=== PATIENT | female | born 1930 | race Caucasian/White ===

== ENCOUNTER 2021-02-28 05:46 | Inpatient (IN) | payer MEDICARE, BC ==
[~2021-02-28] VITALS: Ht 154.9 cm; Wt 91.4 kg
[~2021-02-28 05:46] MED LIST: CALCIUM 600 PLU1 TAB PO; CENTRUM SPECIA1 EAC1 PO; COLACE 100100 MG/CAP PO; DULCOLAX S10 MG/SUPP RC; ELIQUIS 5MG PO; GLUCOSAMINE & C1 CA1 PO; K-DUR 10 MEQ T10 MEQ PO; LASIX 20MG TABL20 MG PO; LIQUIFILM TEARS15 ML OP; MIRALAX PA17 GM/Dose PO; NORCO 325 MG-51 TAB PO; NYSTATIN POWDER30 GM TOP; OCUVITE1 TA1 PO; PROAIR HFA0.09 MG/AC IH; Patient's Own Medica IH; ROBAXIN 75750 MG/TAB PO; SENOKOT S 50 MG1 TAB PO; TENORMIN 2525 MG/TAB PO; TYLENOL 325MG325 MG PO
[2021-02-28 08:14] VITALS: BP 135/83; PULSE 91; TEMP 98.5
[2021-02-28] MEDS ORDERED: GLUCOSAMINE/CHO1 CA4 PO (09:22)
[2021-02-28] MEDS ORDERED: COZAAR100 MG PO (09:23)
[2021-02-28] MEDS ORDERED: NORCO 325 MG-51 TAB PO ×2 (09:23→09:41)
[2021-02-28] MEDS ORDERED: TYLENOL 500MG500 MG PO ×2 (09:25→09:46)
[2021-02-28] MEDS ORDERED: RT ADVAIR 128 DISKUS IH (09:26)
[2021-02-28] MEDS ORDERED: CALCIUM WITH D31 CTB PO (09:27)
[2021-02-28] MEDS ORDERED: LASIX 40MG TABL40 MG PO (09:28)
[2021-02-28] MEDS ORDERED: ROBAXIN 75750 MG/TAB PO ×2 (09:29→09:43)
[2021-02-28] MEDS ORDERED: PRESERVISION1 SGL PO (09:30)
[2021-02-28] MEDS ORDERED: REGULOID0.4 GM PO (09:38)
[2021-02-28] MEDS ORDERED: DULCOLAX TAB5 MG PO (09:39)
[2021-02-28] MEDS ORDERED: COLACE 100100 MG/CAP PO (09:40)
[2021-02-28] MEDS ORDERED: IMODIUM 2MG CAPS2 MG PO (09:42)
[2021-02-28] MEDS ORDERED: NATURAL SENNA8.6 MG PO (09:44)
[2021-02-28] MEDS ORDERED: TUMS500 MG PO (09:45)
[2021-02-28] MEDS ORDERED: 00186-0372-20 IH (09:47)
[2021-02-28 10:48] LABS: TROPONIN-I 0.616 ng/mL (0.000-0.035)
[2021-02-28 11:01] LABS: THYROID STIMULATING HORMONE 3.12 uIU/mL (0.465-4.680)
[2021-02-28 12:00] VITALS: BP 108/44; PULSE 71; TEMP 98.4
--- NOTE | 2021-02-28 12:40 | NUR ---
Plan is to return to [facility] in [place]. SW met with patient an son in room. Son Wale Beauchamp . Patient gave permission to speak with son and she will not remember. Patient reports PCP is Nani Marroquin and the use of a Wheelchair for the last 5 years. Patient reports that she is numb in the legs and can not stand. Patient reports that she does not have addtional cocerns at this time. So reports that he would like to talk with nurse or Doct about the next step. Max facilitated chat for care. Educated on suport availble.
[2021-02-28 15:53] VITALS: BP 104/53; PULSE 70; TEMP 98.6
--- NOTE | 2021-02-28 18:29 | NUR ---
Pt rested most of the afternoon after arrival to the floor. She is A/O x4. Her breathing is even and unlabored on 2L O2 via NC. Pt does endorse some SOB. No chest pain. Reports chronic pain to back, leg and shoulders. Did have a small bout of emesis today, little appetite. SCD's in place. Wagner DD with cloudy urine. Will continue to monitor.
--- NOTE | 2021-02-28 19:30 | NUR ---
PT REQUESTED TO END TRTEATMENT EARLY BECAUSE IT WAS "TOO MUCH". NI EXPLAINED TO PATIENT THIS WAS A SUBSTITUTION FOR HOME MED, SHE STILL WANTERD TO FINISH EARLY.
[2021-02-28 19:48] VITALS: BP 103/52; PULSE 66; TEMP 98
--- NOTE | 2021-02-28 23:03 | NUR ---
Patient assessed around 2049. Alert and oriented, and able to make needs known. Denies having pain and discomfort at this time. Peripheral INT to left AC. Site without redness, warmth, swelling, and pain. Denies having SOB and dyspnea. On oxygen at 2 L/min via NC. LS CTA in upper lobes, diminished in lower. Respirations even and unlabored. HRR. Telemetry in place. Capillary refill less than 3 seconds. Non-tenting skin turgor. BSAx4. Abdomen soft and non-tender. Complained of nausea, and given PRN Zofran. 1+ edema BLE. Voices no questions, needs, or concerns at this time. Resting in bed with call light within reach.
[2021-03-01] VITALS (15 sets, daily range): BP systolic 88–133; BP diastolic 39–58; PULSE 66–74; TEMP 97.2–98.5
--- NOTE | 2021-03-01 00:34 | NUR ---
Patient complained of back pain. Given PRN [place] for pain. Resistant to repositioning, but did allow staff to reposition at this time.
--- NOTE | 2021-03-01 05:44 | NUR ---
Patient has been resting in bed with call light within reach. Continues on oxygen at 1 L/min via NC. Voices no questions, needs, or concerns at this time.
[2021-03-01 06:48] LABS: MEAN CELL VOLUME 99 fl (80.0-100.0); MEAN CORPUSCULAR HGB CONC 29 g/dl (33.0-37.0); PLATELET COUNT 244 K/mm3 (130-400); RED BLOOD COUNT 3.06 M/mm3 (4.10-5.30); REDCELL DISTRIBUTION WIDTH-CV 14.2 % (11.5-14.5)
[2021-03-01 06:49] LABS: HEMATOCRIT 30.2 % (37.0-47.0); HEMOGLOBIN 8.8 g/dl (12.5-16.0); MEAN CORPUSCULAR HEMOGLOBIN 29 pg (27.0-31.0)
[2021-03-01 07:01] LABS: CHOLESTEROL RISK RATIO 3.9
[2021-03-01 07:24] LABS: BAND 29 % (0-10); LYMPHOCYTE 4 % (20.0-51.0); NEUTROPHILS 62 % (42.0-75.2); PLATELET ESTIMATE NORMAL (NORMAL)
--- NOTE | 2021-03-01 07:30 | NUR ---
Pt assessment complete. Pt is laying in bed upon entry, she is A/O x4. Her breathing is even and unlabored on 2L O2 via NC. Pt denies any SOB. No pain at this time. Is having some nausea, small amount of emesis. PRN Zofran administered. SCD's in place. POC discussed with patient who verbalizes understanding. Call light within reach.
[2021-03-01 08:43] LABS: ALBUMIN 3.6 gm/dL (3.5-5.0); CALCIUM 9.1 mg/dL (8.4-10.2); CREATININE, serum 3.18 (0.52-1.25); MAGNESIUM 2.1 mg/dL (1.6-2.3); PHOSPHOROUS 7.3 mg/dL (2.5-4.5); POTASSIUM 5.7 mmol/L (3.4-5.0)
--- NOTE | 2021-03-01 10:28 | NUR ---
Pt left for rosalba at this time.
[2021-03-01 13:23] LABS: PARTIAL THROMBOPLASTIN TIME 35.6 SECONDS (26.0-37.0)
[2021-03-01 13:47] LABS: MUCOUS Present /lpf; PH 5 (5-8); SQUAMOUS EPITHELIAL 0-2 /hpf; URINE APPEARANCE Cloudy; URINE BACTERIA Rare /hpf; URINE BILIRUBIN Negative (NEGATIVE); URINE BLOOD Negative (NEGATIVE); URINE COLOR Amber; URINE GLUCOSE Negative (NEGATIVE); URINE KETONE Trace (NEGATIVE); URINE LEUKOCYTE ESTERASE 3+ (NEGATIVE); URINE NITRATE Negative (NEGATIVE); URINE PROTEIN(semi-quant) 2+ (NEGATIVE); URINE RBC None Seen /hpf; URINE UROBILINOGEN Negative (NEGATIVE)
--- NOTE | 2021-03-01 14:30 | NUR ---
SHANNA attempted to contact Radha at [facility]. SHANNA left her a voicemail and faxed her updates.
[2021-03-01 14:54] LABS: COLLECTION METHOD CATHETER
--- NOTE | 2021-03-01 19:21 | NUR ---
Pt refused to let staff reposition her, discussed possibility of bed sores with patient. She verbalizes understanding and continues to refuse. She had little appetite and small amount of emesis. Very little UOP, workman free from loops or kinks. Bladder scan did not reveal any urine retention. POC discussed with patient who verbalizes understanding. Call light within reach.
--- NOTE | 2021-03-01 21:30 | NUR ---
Call placed to Chen Altamirano RE: critical value Hep XA- phone orders read back- Hold Heparin gtt, d/c heparin bolus, redraw Hep XA at 0200 on 03/02/21. UPdated patient on plan of care.
[2021-03-02] VITALS (14 sets, daily range): BP systolic 100–125; BP diastolic 47–62; PULSE 62–71; TEMP 97.7–98.2
--- NOTE | 2021-03-02 00:45 | NUR ---
Called to room by patient, c/o R sided chest pain, VS stable, call placed to Chen MAXWELL- see new orders. Chen at bedside with patient, EKG done.
[2021-03-02 02:46] LABS: MEAN CELL VOLUME 99 fl (80.0-100.0); MEAN CORPUSCULAR HGB CONC 30 g/dl (33.0-37.0); MEAN PLATELET VOLUME 10.6 fl (7.4-10.4); PLATELET COUNT 252 K/mm3 (130-400); RED BLOOD COUNT 2.96 M/mm3 (4.10-5.30); REDCELL DISTRIBUTION WIDTH-CV 14.3 % (11.5-14.5)
[2021-03-02 02:51] LABS: HEMATOCRIT 29.2 % (37.0-47.0); HEMOGLOBIN 8.6 g/dl (12.5-16.0); MEAN CORPUSCULAR HEMOGLOBIN 29 pg (27.0-31.0)
[2021-03-02 03:02] LABS: CALCIUM 8.8 mg/dL (8.4-10.2); CREATININE, serum 4.04 (0.52-1.25); POTASSIUM 4.8 mmol/L (3.4-5.0)
[2021-03-02 03:26] LABS: ANISOCYTOSIS 1+; HYPOCHROMIA 3+; LYMPHOCYTE 3 % (20.0-51.0); NEUTROPHILS 95 % (42.0-75.2); PLATELET ESTIMATE NORMAL (NORMAL)
[2021-03-02 03:27] LABS: OVALOCYTES 1+
--- NOTE | 2021-03-02 03:30 | NUR ---
Updated Chen Altamirano on critical Hep Xa- NON: do not start heparin gtt at this time.
[2021-03-02 03:46] LABS: TROPONIN-I 0.465 ng/mL (0.000-0.035)
--- NOTE | 2021-03-02 04:50 | NUR ---
Call placed to Chen Altamirano to report 150ml output for shift, urine noted in workman tube. Patient denies pain.
[2021-03-02 11:13] LABS: ARTERIAL BLD GAS O2 SATURATION 97.5 % (92-100); ARTERIAL BLD GAS TCO2 CT 20.1; ARTERIAL BLOOD GAS BASE EXCESS -8.1 (-2-2); ARTERIAL BLOOD GAS HCO3 18.7 meq/L (22-26); ARTERIAL BLOOD GAS PO2 102.2 mmHg (80-100); ARTERIAL BLOOD GAS pH 7.25 (7.35-7.45)
--- NOTE | 2021-03-02 14:29 | NUR ---
SHANNA attempted to contact Radha at [facility]. SHANNA left her a voicemail. SHANNA then contacted the patient's RN, Quin, at [facility]. Quin confirms that the patient is a long-term resident with them. SHANNA faxed updates to [facility]. *Discharge plan: [facility]*
--- NOTE | 2021-03-02 17:55 | NUR ---
1000 PT STILL NOT HAVING MUCH URINE OUTPUT. MD MADE AWARE. PT WAS BLADDER SCAN AND HAVE ZERO URINE IN BLADDER. PT THEN HAD A BM THE HAD BLOOD CLOTS. MADE AWARE. OB STOOL SENT. MD INSTRUCT TO INT PT AT THIS TIME, BUSINESS DEVELOPMENT CONSULTANT WILL BE CONSULTED.
[2021-03-02 18:54] LABS: HEMATOCRIT 28.4 % (37.0-47.0); HEMOGLOBIN 8.3 g/dl (12.5-16.0)
[2021-03-03] VITALS (11 sets, daily range): BP systolic 94–145; BP diastolic 42–73; PULSE 68–94; TEMP 97–98.3
--- NOTE | 2021-03-03 04:12 | NUR ---
Large amount of blood stool- Call placed to Chen MAXWELL- came to bedside and examined patient, VS stable, see new orders.
[2021-03-03 04:40] LABS: MEAN CELL VOLUME 98 fl (80.0-100.0); MEAN CORPUSCULAR HGB CONC 30 g/dl (33.0-37.0); PLATELET COUNT 247 K/mm3 (130-400); REDCELL DISTRIBUTION WIDTH-CV 14.3 % (11.5-14.5)
[2021-03-03 04:43] LABS: HEMATOCRIT 26.4 % (37.0-47.0); HEMOGLOBIN 7.8 g/dl (12.5-16.0); MEAN CORPUSCULAR HEMOGLOBIN 29 pg (27.0-31.0)
[2021-03-03 04:47] LABS: INR 1.7 (0.8-3.0); PROTHROMBIN TIME 19.2 SECONDS (9.7-12.8)
[2021-03-03 04:49] LABS: ALBUMIN 3.7 gm/dL (3.5-5.0); CALCIUM 8.8 mg/dL (8.4-10.2); CREATININE, serum 4.88 (0.52-1.25); PHOSPHOROUS 8.4 mg/dL (2.5-4.5); POTASSIUM 4.6 mmol/L (3.4-5.0)
[2021-03-03 04:57] LABS: BAND 2 % (0-10); BURR CELLS 2+; HYPOCHROMIA 3+; LYMPHOCYTE 6 % (20.0-51.0); NEUTROPHILS 89 % (42.0-75.2); PLATELET ESTIMATE NORMAL (NORMAL)
[2021-03-03 04:58] LABS: OVALOCYTES 1+; SCHISTOCYTES 1+
--- NOTE | 2021-03-03 11:04 | NUR ---
0700 PT RECEIVED AT BEDSIDE, RECEIVING 1 UNIT OF PRBC. NO S/S OF DISTRESS NOTED. PT IS STILL TAKING BOWEL PREP. BM STILL NOT CLEAR BUT LIQUID. 0900 BLOOD TRANSFUSION COMPLETED, PT TOLERATED WELL. PT INSTRUCTED TO STOP BOWEL PREP PRE ANESTHESIA FOR EGD AND COLONOSCOPY TODAY AT 11AM. 0930 RADIOLOGIST AT THE BEDSIDE, WILL REVISIT PT TO EXPLAIN IVC PLACEMENT TODAY TODAY. MAY BE ABLE TO HAVE THE PROCEDURE DONE TODAY AFTER EGD AND COLONOSCOPY. 1000 CONSENT FOR EGD AND COLONOSCOPY OBTAIN. 1015 REPORT GIVEN TO ENDO STAFF 1022 PT TRANSPORTED TO ENDOSCOPY VIA BED. NO S/S OF DISTRESS NOTED
--- NOTE | 2021-03-03 13:52 | NUR ---
The patient is to have an EGD and colonoscopy today. SHANNA notified and faxed updates to Radha at [facility].
--- NOTE | 2021-03-03 19:29 | NUR ---
Marie awake alert, generalized weakness noted, oriented x4, workman w/low output- MD aware-plan made, telemetry in use, denies needs at this time, call julissa w/i reach, frequent checks, refuses turning schedule, KATHERIN heels elevated off of bed, will continue to monitor.
[2021-03-04] VITALS (7 sets, daily range): BP systolic 83–150; BP diastolic 48–75; PULSE 67–84; TEMP 97.8–98.6
[2021-03-04 07:10] LABS: MEAN CELL VOLUME 98 fl (80.0-100.0); MEAN CORPUSCULAR HGB CONC 31 g/dl (33.0-37.0); MEAN PLATELET VOLUME 10.2 fl (7.4-10.4); PLATELET COUNT 236 K/mm3 (130-400); RED BLOOD COUNT 3.17 M/mm3 (4.10-5.30); REDCELL DISTRIBUTION WIDTH-CV 14.2 % (11.5-14.5)
[2021-03-04 07:11] LABS: HEMOGLOBIN 9.5 g/dl (12.5-16.0); MEAN CORPUSCULAR HEMOGLOBIN 30 pg (27.0-31.0)
[2021-03-04 07:14] LABS: CALCIUM 8.7 mg/dL (8.4-10.2); CREATININE, serum 5.43 (0.52-1.25); POTASSIUM 4.5 mmol/L (3.4-5.0)
[2021-03-04 07:43] LABS: HYPOCHROMIA 3+; LYMPHOCYTE 9 % (20.0-51.0); NEUTROPHILS 90 % (42.0-75.2); PLATELET ESTIMATE NORMAL (NORMAL)
--- NOTE | 2021-03-04 08:17 | NUR ---
SEE MERGE FOR ALL MEDICATION ADMINISTRATION TIMES, INTRA AND POST SEDATION ASSESSMENTS
--- NOTE | 2021-03-04 11:05 | NUR ---
Pt left floor this morning for dialysis catheter and IVC filter placement, returned to floor and shortly after was taken to dialysis. Shift assessments completed, left Pt in dialysis.
[2021-03-04 11:12] LABS: IRON,SERUM 83 ug/dL (35-150)
[2021-03-04 11:21] LABS: TOTAL IRON BINDING CAPACITY 261 ug/dL (265-497)
--- NOTE | 2021-03-04 12:08 | NUR ---
PATIENT TOLERATED HER 1ST HD TX WITH 700 ML FLUID REMOVAL. NEXT PLANNED HD TX TOMORROW Sunday03/05/21 @ 0800.
--- NOTE | 2021-03-04 15:28 | NUR ---
SHANNA contacted the patient's son, Wale, to follow up. Wale confirms that the plan is for the patient to return back to [place] upon discharge. He was interested in an update from the patient's RN. SHANNA transferred the call to the medical unit and notified the senior shipping clerk. SHANNA faxed updates to Radha at [facility].
[2021-03-04 22:00] LABS: HEPATITIS B SURFACE ANTIBODY <2.0 (()); HEPATITIS B SURFACE ANTIGEN Negative (Negative); HEPATITIS C VIRUS ANTIBODY Negative (Negative)
--- NOTE | 2021-03-05 01:46 | NUR ---
Franchesca complains of being weak last night. She complains of generalized pain. I gave her Tylenol 325mg. She complains being cold too and having SOB. I checked her O2 sat she was 94% at 2L. I gave her extra warm blanket and adjusted the temp inside the room. I told her that her saturation is good and she said that she will try to get some sleep. Tele called that she runs in 150's sinus tach for 15 sec but it went back right away to 76. She called often for ice chips and for little things. Continue to monitor.
[2021-03-05 03:51] VITALS: BP 140/64; PULSE 80; TEMP 98.4
--- NOTE | 2021-03-05 04:20 | NUR ---
Franchesca had her Freedom this morning she compalins of neck pain 8out of 10. She said that she is uncomfortable so I repositioned her and pulled up in bed. She still feels uncomfortable and wanted just to be in her back instead.
[2021-03-05 07:06] LABS: MEAN CELL VOLUME 98 fl (80.0-100.0); MEAN CORPUSCULAR HGB CONC 30 g/dl (33.0-37.0); MEAN PLATELET VOLUME 10.2 fl (7.4-10.4); PLATELET COUNT 213 K/mm3 (130-400); RED BLOOD COUNT 3.09 M/mm3 (4.10-5.30); REDCELL DISTRIBUTION WIDTH-CV 14.2 % (11.5-14.5)
[2021-03-05 07:12] LABS: HEMATOCRIT 30.3 % (37.0-47.0); HEMOGLOBIN 9.1 g/dl (12.5-16.0); MEAN CORPUSCULAR HEMOGLOBIN 29 pg (27.0-31.0)
[2021-03-05 07:18] LABS: CALCIUM 8.7 mg/dL (8.4-10.2); CREATININE, serum 4.87 (0.52-1.25); POTASSIUM 4.2 mmol/L (3.4-5.0)
[2021-03-05 07:35] VITALS: BP 117/53; PULSE 76; TEMP 97.6
--- NOTE | 2021-03-05 08:40 | NUR ---
Pt off unit for hemodialysis at this time.
[2021-03-05 09:23] LABS: BAND 2 % (0-10); HYPOCHROMIA 1+; LYMPHOCYTE 14 % (20.0-51.0); NEUTROPHILS 82 % (42.0-75.2); PLATELET ESTIMATE NORMAL (NORMAL)
--- NOTE | 2021-03-05 11:00 | NUR ---
Shift assessment complete. Pt lying in bed. Denies pain or SOA. Does report some tenderness to touch in BLE. BUE w/3+ edema and generalized redness/bruising to entire body. Pt on 1 lpm O2 w/sats stable. Denies needs at this time. Continuing to monitor.
--- NOTE | 2021-03-05 11:35 | NUR ---
Patient tolerated her 2nd dialysis tx today with 500 mL fluid removal. Next planned HD tx on Sunday03/07/21 @ 0800 pending AM labs.
[2021-03-05 11:48] VITALS: BP 176/84; PULSE 70; TEMP 97.4
[2021-03-05 17:33] VITALS: BP 160/93; PULSE 71; TEMP 97.8
[2021-03-05 20:25] VITALS: BP 142/59; PULSE 73; TEMP 98.2
[2021-03-05 23:55] VITALS: BP 144/65; PULSE 67; TEMP 98
--- NOTE | 2021-03-06 00:22 | NUR ---
Franchesca had a big bowel movement, it is watery. She get so embarrassed for she feels like its a lot. Her buttocks is unblanchable and she refused to get turn to her side. I removed her gauze in her right groin from IVC filter site. It bleeds a little bit but its soft and non tender. It gets dirty from her stool. She denies pain or SOB. She is more rested bcompare last night. Continue to monitor.
[2021-03-06 03:58] VITALS: BP 131/63; PULSE 73; TEMP 98
[2021-03-06 07:48] VITALS: BP 144/63; PULSE 72; TEMP 98.3
[2021-03-06 08:10] LABS: MEAN CELL VOLUME 97 fl (80.0-100.0); MEAN CORPUSCULAR HGB CONC 31 g/dl (33.0-37.0); MEAN PLATELET VOLUME 10.1 fl (7.4-10.4); PLATELET COUNT 197 K/mm3 (130-400); RED BLOOD COUNT 2.88 M/mm3 (4.10-5.30); REDCELL DISTRIBUTION WIDTH-CV 14.1 % (11.5-14.5)
[2021-03-06 08:21] LABS: CALCIUM 8.5 mg/dL (8.4-10.2); CREATININE, serum 3.58 (0.52-1.25); POTASSIUM 3.7 mmol/L (3.4-5.0)
[2021-03-06 08:23] LABS: HEMOGLOBIN 8.7 g/dl (12.5-16.0); MEAN CORPUSCULAR HEMOGLOBIN 30 pg (27.0-31.0)
--- NOTE | 2021-03-06 09:55 | NUR ---
Report received from ARACELIS Craig. pT in bed resting, sleeping between disturbances, but wakes easily, KASHIA. Able to take PO well. BUE are very swollen and L hand very bruised. at bedside intermittently. denies pain, will continue to monitor.
[2021-03-06 10:21] LABS: BAND 1 % (0-10); LYMPHOCYTE 7 % (20.0-51.0); METAMYELOCYTE 1 % (0-0)
[2021-03-06 10:22] LABS: HYPOCHROMIA 2+; NEUTROPHILS 86 % (42.0-75.2); PLATELET ESTIMATE NORMAL (NORMAL)
[2021-03-06 12:07] VITALS: BP 135/60; PULSE 69; TEMP 97.9
[2021-03-06 17:10] VITALS: BP 130/70; PULSE 68; TEMP 97.8
--- NOTE | 2021-03-06 18:14 | NUR ---
PT has rested between disturbances all day. At meal times pt requests to be fed but capable to feeding self. Minimal urine output over shift. o2 at 1L NC. Will give bedside shift report to nightshift nurse who will resume care.
[2021-03-06 19:25] VITALS: BP 118/49; PULSE 63; TEMP 97.7
[2021-03-07 03:49] VITALS: BP 120/56; PULSE 60; TEMP 97.8
[2021-03-07 06:33] LABS: MEAN CELL VOLUME 97 fl (80.0-100.0); MEAN CORPUSCULAR HGB CONC 30 g/dl (33.0-37.0); MEAN PLATELET VOLUME 9.7 fl (7.4-10.4); PLATELET COUNT 209 K/mm3 (130-400); REDCELL DISTRIBUTION WIDTH-CV 14.1 % (11.5-14.5)
[2021-03-07 06:34] LABS: HEMOGLOBIN 8.8 g/dl (12.5-16.0); MEAN CORPUSCULAR HEMOGLOBIN 29 pg (27.0-31.0)
[2021-03-07 06:40] LABS: ALBUMIN 3.1 gm/dL (3.5-5.0); CALCIUM 8.6 mg/dL (8.4-10.2); CREATININE, serum 4.4 (0.52-1.25); PHOSPHOROUS 5.7 mg/dL (2.5-4.5); POTASSIUM 3.9 mmol/L (3.4-5.0)
[2021-03-07 07:25] LABS: BAND 6 % (0-10); EOSINOPHIL 4 % (0-4); LYMPHOCYTE 8 % (20.0-51.0); NEUTROPHILS 75 % (42.0-75.2); OVALOCYTES 1+
[2021-03-07 07:26] LABS: PLATELET ESTIMATE NORMAL (NORMAL)
[2021-03-07 07:41] VITALS: BP 119/53; PULSE 60; TEMP 97.9
--- NOTE | 2021-03-07 08:24 | NUR ---
Pt sleeping upon entry, easily awakened. No C/O pain at this time. Shift assessments complete, left Pt in bed, call light in reach.
--- NOTE | 2021-03-07 12:58 | NUR ---
Patient tolerated her 3rd HD tx with 500 mL fluid removal today. Next HD tx pending labs.
--- NOTE | 2021-03-07 13:24 | NUR ---
SW contacted and faxed updates to [facility].
[2021-03-07 16:52] VITALS: BP 123/53; PULSE 66; TEMP 98.1
[2021-03-07 19:31] VITALS: BP 105/53; PULSE 62; TEMP 98.3
--- NOTE | 2021-03-07 21:16 | NUR ---
Marti wanted to get up to use the bathroom. She is confused and weak. I told her that we will use the bedpan instead. She didn't like it but still RN use it. She have a pain pump in her right lower abdomen. She denies pain. She peed a little bit. Bed alrm is set and call light is within reach.
[2021-03-08 01:51] VITALS: BP 118/54; PULSE 63; TEMP 98.5
--- NOTE | 2021-03-08 04:23 | NUR ---
Quin Montanez slept all night. She didn't ask for anything,denies pain or SOB. She gets up to the bathroom standby. Her edema in her lower extremities gone down. No complains noted.Bed alarm set and call light is within reach. Continue to monitor.
--- NOTE | 2021-03-08 04:30 | NUR ---
Franchesca had a 2x loose bowel movement in my shift. Her tay area to starting to get excoriation. Her buttocks is unblanchable red. She refused to get reposition. She is in her back most of the night. She denies pain. She slept most of the night. Continue to follow.
[2021-03-08 04:42] VITALS: BP 117/55; PULSE 62; TEMP 98.6
[2021-03-08 07:21] LABS: MEAN CELL VOLUME 99 fl (80.0-100.0); MEAN CORPUSCULAR HGB CONC 30 g/dl (33.0-37.0); PLATELET COUNT 206 K/mm3 (130-400); RED BLOOD COUNT 2.98 M/mm3 (4.10-5.30); REDCELL DISTRIBUTION WIDTH-CV 14.3 % (11.5-14.5)
[2021-03-08 07:27] LABS: ALBUMIN 3.1 gm/dL (3.5-5.0); CALCIUM 8.8 mg/dL (8.4-10.2); CREATININE, serum 2.83 (0.52-1.25); PHOSPHOROUS 4.1 mg/dL (2.5-4.5); POTASSIUM 3.8 mmol/L (3.4-5.0)
[2021-03-08 07:29] LABS: HEMATOCRIT 29.6 % (37.0-47.0); HEMOGLOBIN 8.8 g/dl (12.5-16.0); MEAN CORPUSCULAR HEMOGLOBIN 30 pg (27.0-31.0)
[2021-03-08 08:01] VITALS: BP 117/51; PULSE 65; TEMP 97.4
--- NOTE | 2021-03-08 08:06 | NUR ---
Pt awake upon entry to room, sitting up in the bed eating breakfast. no C/O pain at this time, removed FORD hose per Pt's request. Shift assessment complete, left Pt call light in reach, bed in lowest position.
[2021-03-08 09:50] LABS: BAND 1 % (0-10); EOSINOPHIL 4 % (0-4); LYMPHOCYTE 10 % (20.0-51.0); NEUTROPHILS 81 % (42.0-75.2); PLATELET ESTIMATE NORMAL (NORMAL)
[2021-03-08 09:52] LABS: OVALOCYTES 1+
[2021-03-08 09:55] LABS: HYPOCHROMIA 1+
[2021-03-08 11:38] VITALS: BP 98/46; PULSE 62; TEMP 97.7
--- NOTE | 2021-03-08 13:44 | NUR ---
The guest relations representative plans on making dialysis decisions tomorrow and if she will need continued dialysis. SHANNA attempted to contact Radha at [facility] to update. SHANNA left her a voicemail and faxed over updates.
--- NOTE | 2021-03-08 15:22 | NUR ---
Radha, at [facility], returned SHANNA's phone call. Radha reports that if the patient is needing dialysis, that they may run into some issues. She reports that they do not have transport to be able to take the patient to the dialysis clinic in [place]. She reports that the [facility] clinic is now open again, but they would need to know if Dr. Bray would follow her care at that clinic or not. She reports that she believes doctors in [place] are at the clinic. SHANNA notified ARACELIS Eubanks with Dr. Bray, of the above concerns.
[2021-03-08 17:12] VITALS: BP 105/61; PULSE 84; TEMP 98.5
[2021-03-08 20:58] VITALS: BP 117/52; PULSE 60; TEMP 97.4
[2021-03-09] VITALS (7 sets, daily range): BP systolic 108–132; BP diastolic 48–65; PULSE 62–74; TEMP 97.8–98.3
--- NOTE | 2021-03-09 05:28 | NUR ---
Franchesca had 1x of Bowel movement in my 12 hours shift. Its still loose. Her tay area and buttocks is started to geni excoriated. Sensi care applied.
[2021-03-09 07:24] LABS: BASO % 0.2 % (0.0-2.0); EOS # 0.2 (0.0-0.7); EOS % 1.7 % (0-4.0); GRAN # 11.1 (1.4-6.5); GRAN % 87.5 % (42.2-75.2); LYMPH # 0.8 (1.2-3.4); LYMPH % 6.2 % (20.0-51.0); MEAN CELL VOLUME 98 fl (80.0-100.0); MEAN CORPUSCULAR HGB CONC 29 g/dl (33.0-37.0); MEAN PLATELET VOLUME 9.9 fl (7.4-10.4); MONO # 0.4 (0.1-0.6); MONO % 3.1 % (1.7-9.3); PLATELET COUNT 225 K/mm3 (130-400); RED BLOOD COUNT 2.91 M/mm3 (4.10-5.30); REDCELL DISTRIBUTION WIDTH-CV 14.3 % (11.5-14.5)
[2021-03-09 07:28] LABS: HEMATOCRIT 28.6 % (37.0-47.0); HEMOGLOBIN 8.4 g/dl (12.5-16.0); MEAN CORPUSCULAR HEMOGLOBIN 29 pg (27.0-31.0)
[2021-03-09 07:35] LABS: CALCIUM 8.6 mg/dL (8.4-10.2); CREATININE, serum 3.67 (0.52-1.25); PHOSPHOROUS 4.8 mg/dL (2.5-4.5); POTASSIUM 4.2 mmol/L (3.4-5.0)
--- NOTE | 2021-03-09 13:51 | NUR ---
Pt sleeping upon entry, easily awakened. Has C/O pin in lower extremities from FORD hose, removed for relief. Shift assessment complete, left Pt call light in reach, bed in lowest position.
--- NOTE | 2021-03-09 14:27 | NUR ---
Dr. Bray notified SHANNA that the patient is going to need continued dialysis for a short time upon discharge and he would recommend that the patient go to a SNF in [place], until she has recovered from her KELLI. SHANNA contacted the patient's son, Wale, and discussed the above. Wale was agreeable to whatever is being recommended and did not have a preference on facility. SHANNA was able to transfer the call to Dr. Bray for the son to get an update. SHANNA attempted to contact and update Radha at [facility]. SW left her a voicemail. SHANNA contacted and faxed a referral to [facility] and [facility]. Lexy, at [facility], reports that the patient is not skillable and requires a ingrid lift for all transfers. She states that they would want require the patient to go to their long-term care, but they do not have any beds available at this time and have to decline the patient. Adolfo, at [facility], reports that they are able to accept the patient for a skilled stay, but that the patient's chair time would need to be on //, with a sweet pickled fruit maker time no later than 1700. SHANNA contacted [facility] and updated their social secretary on the above. The social secretary plans on talking to the dialysis coordinator and will try and work out a time that works with [facility].
--- NOTE | 2021-03-09 16:42 | NUR ---
Patient tolerated HD tx with 400 mL fluid removal today. Next planned HD tx on Sunday03/11/2021 @ 0830.
[2021-03-10] VITALS (11 sets, daily range): BP systolic 123–153; BP diastolic 51–62; PULSE 60–70; TEMP 97.7–98.6
--- NOTE | 2021-03-10 04:20 | NUR ---
Patient is anxious last night. She was in her call light most of the night for simple things. Wanted to be turn and complains that she get turned too much.She asked for water and she said water is too cold. Small things like that. She complains pain for first time and Tylenol PRN given. Continue to monitor.
[2021-03-10 07:48] LABS: BASO # 0.1 (0.0-0.2); BASO % 0.3 % (0.0-2.0); EOS # 0.1 (0.0-0.7); EOS % 0.7 % (0-4.0); GRAN # 14.2 (1.4-6.5); LYMPH # 0.8 (1.2-3.4); LYMPH % 5.3 % (20.0-51.0); MEAN CELL VOLUME 100 fl (80.0-100.0); MEAN CORPUSCULAR HGB CONC 29 g/dl (33.0-37.0); MEAN PLATELET VOLUME 9.5 fl (7.4-10.4); MONO # 0.4 (0.1-0.6); MONO % 2.7 % (1.7-9.3); PLATELET COUNT 256 K/mm3 (130-400); RED BLOOD COUNT 2.75 M/mm3 (4.10-5.30); REDCELL DISTRIBUTION WIDTH-CV 14.4 % (11.5-14.5)
[2021-03-10 07:49] LABS: HEMATOCRIT 27.6 % (37.0-47.0); HEMOGLOBIN 8.1 g/dl (12.5-16.0); MEAN CORPUSCULAR HEMOGLOBIN 29 pg (27.0-31.0)
[2021-03-10 08:03] LABS: ALBUMIN 3.1 gm/dL (3.5-5.0); CALCIUM 8.6 mg/dL (8.4-10.2); CREATININE, serum 2.45 (0.52-1.25); PHOSPHOROUS 3.9 mg/dL (2.5-4.5); POTASSIUM 4.2 mmol/L (3.4-5.0)
--- NOTE | 2021-03-10 08:59 | NUR ---
PT PLEASANT, AOX4, DENIES PAIN, RAMPART KATHERIN, TOOK PILLS ONE AT A TIME WITH SMALL SIPS OF WATER, CONSENT OBTAINED FOR TUNNELED DIALYSIS CATH PLACEMENT, PT HAVING DIARRHEA SO IMMODIUM GIVEN WITH MORNING PILLS, BARRY AREA EXCORIATED, ASSESSMENT PERFORMED, R HAND DUSKY IN COLOR BUT CAP REFILL <3SEC. NO OTHER NEEDS AT THIS TIME.
--- NOTE | 2021-03-10 10:57 | NUR ---
Radha, at [facility], reports that they will be able to accept the patient back and transport her to dialysis, due to dialysis being short-term. She reports that they would prefer dialysis on //. SHANNA attempted to contact Nanette at [facility] to update for a chair time. SHANNA left her a voicemail. SHANNA updated ARACLEIS Eubanks with Dr. Bray.
--- NOTE | 2021-03-10 11:00 | NUR ---
PT REPORTING "I FEEL LIKE I CANT BREATHE". PT SATTING 100% ON 2L, DOES NOT APPEAR IN DISTRESS, INFORMED HER SHE COULD TRY A BREATHING TREATMENT BUT PT NOT INTERESTED
--- NOTE | 2021-03-10 14:02 | NUR ---
Dr. Bray notified SHANNA that the patient's chair time will only be 2 days a week, on M/ at 3:15 PM. He reports that the patient may be able to d/c tomorrow. SHANNA notified and faxed d/c orders to Radha at [facility]. Radha reports that they are able to accept the back tomorrow. SHANNA met with the patient's son, Wale, and updated him on the above. He is in agreement with the patient going back to [facility]. *Discharge plan: [facility]*
--- NOTE | 2021-03-10 14:38 | NUR ---
SEE MERGE FOR ALL MEDICATION ADMINISTRATION TIMES, INTRA AND POST SEDATION ASSESSMENTS
--- NOTE | 2021-03-10 15:32 | NUR ---
Pt received on floor, reassessed dressing and began Post-op vitals per protocol. VS stable at this time. Scant drainage noted at insertion site, discussed with Cardiac cath nurse, no concern at this time. Will continue to monitor site.
--- NOTE | 2021-03-10 17:44 | NUR ---
SOME BLEEDING AT CATH SITE, NO MORE SINCE PT WAS BROUGHT UP, GAUZE IN PLACE, PT AOX4, DENIES PAIN, ON 2L NC, NO OTHER NEEDS
[2021-03-10 19:14] LABS: URINE TOTAL VOLUME 20 mL
--- NOTE | 2021-03-10 20:00 | NUR ---
PATIENT IS A&O. VSS ON TELE. NO C/O PAIN OR DYSPNEA AT REST. PATIENT IS FROM [facility] AND WAS ADMITTED FOR A NSTEMI & RIGHT LOBE PNA. A&P LUNG BASES DEMINISHED. 02 AT 2L PER NC WITH SATS IN UPPER 90'S. PATIENT WEARS O2 AT HOME AND HAS EXTENSIVE HX INCLUDING A-FIB, CHF, CKD & COPD. DNI CODE STATUS. RIGHT CHEST DIALYSIS CATH PLACED. PATIENT HAD DIALYSIS LAST SUNDAY REPORTED BY DAY SHIFT. RIGHT CHEST DIALYSIS CATH TO INT. RIGHT FORARM IV TO INT. NO C/O N/V. AHA DIET, FEEDER. PATIENT IS WEAK BUT REFUSES TO DO ACTIVITY OR SELF CARES. PT/OT CONSULTED. SKIN INTEGRITY ISSUES NOTED, SEE SHIFT ASSESSMENT. HEAD TO TOE ASSESSMENT COMPLETE. HS MEDS GIVEN. BED ALARM ON. CALL LIGHT IN REACH.
[2021-03-10 21:03] LABS: CREATININE, serum 2.44 (0.52-1.25)
[2021-03-11 03:13] VITALS: BP 128/49; PULSE 66; TEMP 98.6
[2021-03-11 06:36] LABS: BASO % 0.2 % (0.0-2.0); EOS # 0.1 (0.0-0.7); EOS % 0.7 % (0-4.0); GRAN # 14.9 (1.4-6.5); HEMATOCRIT 28.4 % (37.0-47.0); HEMOGLOBIN 8.3 g/dl (12.5-16.0); LYMPH # 0.8 (1.2-3.4); LYMPH % 4.6 % (20.0-51.0); MEAN CELL VOLUME 101 fl (80.0-100.0); MEAN CORPUSCULAR HEMOGLOBIN 30 pg (27.0-31.0); MEAN CORPUSCULAR HGB CONC 29 g/dl (33.0-37.0); MEAN PLATELET VOLUME 9.5 fl (7.4-10.4); MONO # 0.6 (0.1-0.6); MONO % 3.4 % (1.7-9.3); PLATELET COUNT 264 K/mm3 (130-400); REDCELL DISTRIBUTION WIDTH-CV 14.6 % (11.5-14.5)
[2021-03-11 06:49] LABS: CALCIUM 8.7 mg/dL (8.4-10.2); CREATININE, serum 3.29 (0.52-1.25); POTASSIUM 4.6 mmol/L (3.4-5.0)
[2021-03-11 07:58] LABS: ALBUMIN 3.2 gm/dL (3.5-5.0); PHOSPHOROUS 4.7 mg/dL (2.5-4.5)
[2021-03-11 08:31] VITALS: BP 122/47; PULSE 71; TEMP 98.1
[2021-03-11] MEDS ORDERED: PROTONIX 40MG T40 MG PO (09:06)
[2021-03-11] MEDS ORDERED: TYLENOL 325MG325 MG PO (09:08)
[2021-03-11] MEDS ORDERED: COREG 3.123.125 MG/T PO (09:09)
[2021-03-11] MEDS ORDERED: ASPIRIN E.C. 8181 MG PO (09:09)
[2021-03-11] MEDS ORDERED: FERROUS SU325 MG/TAB PO (09:10)
[2021-03-11] MEDS ORDERED: NORCO 325 MG-51 TAB PO (09:13)
--- NOTE | 2021-03-11 10:04 | NUR ---
Titrated Oxygen down to 1L, SPO2 currently 99. Will continue to titrate.
--- NOTE | 2021-03-11 10:12 | NUR ---
Pt alert and oriented. Pt had generalized bruising in bilateral upper extremities. Pt expressed pain, resoved with ordered medications. Pt expressed being cool, temperature turned up and sheet pulled up over pt. Refused blankets. SCDs placed.
--- NOTE | 2021-03-11 11:20 | NUR ---
PT TRANSPORTED TO DIALYSIS. PT C/O NAUSEA SO ZOFRAN GIVEN.
--- NOTE | 2021-03-11 13:05 | NUR ---
The patient is to discharge today, 03/11, back to [facility] for a skilled stay. Transportation was scheduled at 1500, via [facility]. SHANNA informed the patient's RN and her son, Wale, of the time. They were both agreeable to the time. SHANNA also read the IM form outloud to Wale over the phone. Wale verbalized understanding and gave SHANNA approval to sign the form on his behalf. No additional needs at this time.
[2021-03-11] MEDS ORDERED: LASIX 20MG TABL20 MG PO (13:57)
[2021-03-11] MEDS ORDERED: TUMS500 MG PO (13:57)
--- NOTE | 2021-03-11 14:29 | NUR ---
PATIENT TOLERATED 5TH HD TX WITH 200 ML FLUID REMOVAL. NEXT PLANNED HD TX ON Sunday03/14/21 @ 1515 @ [facility].
[2021-03-11 14:44] VITALS: BP 127/51; PULSE 68; TEMP 97.9
--- NOTE | 2021-03-11 15:59 | NUR ---
Pt was at dialysis at time of education. Attempted twice to educate, pt sleeping.
--- NOTE | 2021-03-11 17:48 | NUR ---
Back charting. Called prior to discharge and gave report to [facility] nursing staff.
== END 2021-03-11 16:33 | DRG 280 ==
LOC: MEDICAL 05:46
PROVIDERS: Internal Medicine; Internal Medicine Nephrology; Physician Assistant; Student in an Organized Health Care Education/Training Program; ADMIT Student in an Organized Health Care Education/Training Program
PROC: 06H03DZ Insertion of Intraluminal Device into Inferior Vena Cava, Percutaneous Approach (ICD-10-PCS; 2021-03-02)
PROC: 0W3P8ZZ Control Bleeding in Gastrointestinal Tract, Via Natural or Artificial Opening Endoscopic (ICD-10-PCS; 2021-03-03)
PROC: 0JH63XZ Insertion of Tunneled Vascular Access Device into Chest Subcutaneous Tissue and Fascia, Percutaneous Approach (ICD-10-PCS; principal; 2021-03-09)
PROC: 02H633Z Insertion of Infusion Device into Right Atrium, Percutaneous Approach (ICD-10-PCS; 2021-03-09)
DX: I13.0 Hypertensive heart and chronic kidney disease with heart failure and stage 1 through stage 4 chronic kidney disease, or unspecified chronic kidney disease (principal); I21.4 Non-ST elevation (NSTEMI) myocardial infarction; A41.9 Sepsis, unspecified organism; J18.9 Pneumonia, unspecified organism; N18.4 Chronic kidney disease, stage 4 (severe); N17.9 Acute kidney failure, unspecified; N39.0 Urinary tract infection, site not specified; K63.3 Ulcer of intestine; J44.0 Chronic obstructive pulmonary disease with (acute) lower respiratory infection; K92.1 Melena; E87.2 Acidosis; E87.5 Hyperkalemia; E78.00 Pure hypercholesterolemia, unspecified; I35.0 Nonrheumatic aortic (valve) stenosis; Z96.642 Presence of left artificial hip joint; D12.0 Benign neoplasm of cecum; D12.2 Benign neoplasm of ascending colon; D12.5 Benign neoplasm of sigmoid colon; R19.7 Diarrhea, unspecified; K64.2 Third degree hemorrhoids; D50.0 Iron deficiency anemia secondary to blood loss (chronic); E66.9 Obesity, unspecified; Z87.891 Personal history of nicotine dependence; Z90.89 Acquired absence of other organs; Z90.710 Acquired absence of both cervix and uterus
CPT/HCPCS: 99223-AI; 99232-AI; 99233-AI; 99239; A9500; A9540; A9567; C1769; C1880; C1894; C9113; J0456; J0696; J1200; J1644; J1756; J1940; J2250; J2370; J2405; J2543; J2704; J2785; J3010; J7030; J7040; J7050; J7120; P9016; Q5106; Q9967